=== PATIENT | female | born 1990 | race Caucasian/White ===

== ENCOUNTER 2019-02-20 07:26 | Inpatient (IN) ==
[2019-02-20] MEDS ORDERED: OXYTOCIN 30 UNITS/500 ML BAG IV PRN ×3 (07:56→23:38)
[2019-02-20 08:21] LABS: Hematocrit (blood only) 34.9 % (37-47); Hemoglobin 12.2 g/dL (12.0-16.0); Mean Corpuscular Volume 89.3 fL (80-100); Platelet Count 188 K/uL (130-400); RDW Coefficient of Variation 12.8 % (11.5-14.5); RDW Standard Deviation 41.3 fL (36.4-46.3); Red Blood Count 3.91 M/uL (4.2-5.4); White Blood Count 13.45 K/uL (4.8-10.8)
--- NOTE | 2019-02-20 08:29 | History & Physical Report ---
Date of Service February 20, 2019 Assessment & Plan (1) 41 weeks gestation of : (2) Elective induction of labor planned: admit iv, labs. fhts categ 1, start pitocin, plan arom when able. induction indicated for postdatism and couple agree. aware dr. neri will be taking over. History of Present Illness Chief Complaint: planned induction Primary Care Provider: Abbie Blackburn MD 28yo at 41+wks ega presents to L&D with above cc. No new compliants. Was crampy last night. Elder balloon fell out at 4am and then less crampy. No rom. No vb. +FM. pnc c/b postdates pnl rh pos, rubella immune, gbs negative obh: g1 gynh: no stds, normal pap smears pmh: h/o depression/anxiety psh: T&A, left leg mole removal, wisdom teeth Allergies Allergy/AdvReac Type Severity Reaction Status Date / Time No Known Drug Allergies Allergy Unknown Verified 02/20/19 07:41 Home Medications Home Medications Medication Instructions Recorded Confirmed Type ferrous sulfate 1 tab PO 3XWK 01/09/19 02/20/19 History omega-3 fatty acids 1 tab PO DAILY 01/09/19 02/20/19 History 1 tab PO DAILY 01/09/19 02/20/19 History vitamin,calcium,imiigcek-timx-isxem acid tablet Patient History Social History Preferred Language: Indonesian Beliefs That Will Affect Care: None marital status: Current Living Situation: Spouse Other Information That Helps Us Care for You: No Feels Safe at Home: Yes Safety Concerns: Feels Safe At This Time Smoking Status: Former smoker Second Hand Exposure: No ; Hx Alcohol Use: No Hx Substance Use: No Review of Systems per hpi, denies pain this am. Physical Exam Constitutional: WD/WN, vitals as above Respiratory: normal respiratory effort Auscultation: lungs clear to auscultation bilaterally Cardiovascular: Rate/Rhythm: regular rate and regular rhythm Gastrointestinal (Abdomen): Percussion/Palpation: abdomen soft (gravid efw 7#14oz); abdomen nontender Neurologic: grossly normal Psychiatric: A+Ox3, euthymic affect Genitourinary: OB Exam Abdomen: + vertex Manual OB Exam: + cervical dilation 3 cm, + cervical effacement 20% and + station (posterior, medium) -2 OB Exam Monitor Tracing: + external FHT monitor used (135 mod variability, reactive), + external uterine monitor used (irreg), + category I and + normal FHT variability efw 7#140z Results & Data Vital Signs (Past 12 Hours) Vital Signs Temp Pulse Resp BP 02/20/19 07:39 98.6 F 90 16 130/76 Code Status & VTE Plan VTE Prophylaxis Plan VTE Prophylaxis will be ordered: No
[2019-02-20] MEDS: LACTATED RINGER'S 1,000 ML IV PRN ×4 (08:48→19:52)
[2019-02-20] MEDS ORDERED: ePHEDrine sulfate 50 MG/ML AMP ONE (15:03)
[2019-02-20] MEDS ORDERED: BUPIVACAINE 0.25% 30 ML VIAL ONE (15:03)
[2019-02-20] MEDS ORDERED: fentaNYL citrate 100 MCG/2 ML VIAL ONE ×2 (15:03→21:47)
[2019-02-20] MEDS ORDERED: fentaNYL 2MCG/ML ROPIV 1.25MG/ML 100 ML BAG EPI ONE (15:04)
--- NOTE | 2019-02-20 15:27 | Anesthesiology Consultation ---
Date of Service February 20, 2019 Assessment & Plan Chart Review Chart Review: Acceptable Risk for Labor Epidural Consults Requested none History Height/Weight Height: 5 ft 8 in Weight: 94.347 kg Allergies Allergy/AdvReac Type Severity Reaction Status Date / Time No Known Drug Allergies Allergy Unknown Verified 02/20/19 07:41 Medications Home Medications Medication Instructions Recorded Confirmed Last Taken ferrous sulfate 1 tab PO 3XWK 01/09/19 02/20/19 02/18/19 omega-3 fatty acids 1 tab PO DAILY 01/09/19 02/20/19 02/19/19 12:00 1 tab PO DAILY 01/09/19 02/20/19 02/19/19 15:00 vitamin,calcium,vuipzyrb-pkzr-hpisk acid tablet Active Medications Generic Name Dose Route Start Last Admin Trade Name Freq PRN Reason Stop Dose Admin Lactated Ringer's 1,000 mls @ 125 mls/hr 02/20/19 07:56 02/20/19 14:57 Lr IV 02/22/19 07:55 999 mls/hr .Q8H PRN Administration L&D Protocol Protocol Oxytocin 30 units in 500 mls @ 13 mls/hr 02/20/19 07:56 02/20/19 13:40 Pitocin IV 02/22/19 07:55 0.78 units/hr .Q24H PRN 13 mls/hr Labor Induction/Augmentation Titration Protocol 0.78 UNITS/HR Past Medical History Medical History History of anemia History of anxiety History of depression History of varicella Past Family History Family History Father Hepatitis Past Surgical History Surgical History History of removal of skin mole S/P tonsillectomy and adenoidectomy S/P wisdom tooth extraction Social History Smoking Status: Former smoker Hx Alcohol Use: No Hx Substance Use: No substance use type: does not use Physical Exam Vital Signs Last Vital Signs Temp 36.7 C 02/20/19 10:45 Pulse 74 02/20/19 15:24 Resp 18 02/20/19 10:45 BP 128/81 02/20/19 14:49 Pulse Ox 99 02/20/19 15:24 Testing Laboratory Results 02/20/19 08:11
[2019-02-20] MEDS ORDERED: ePHEDrine sulfate 50 MG/ML AMP IV PRN (15:30)
[2019-02-20] MEDS ORDERED: NALBUPHINE HCL INJ 10 MG/ML AMP IV PRN (15:30)
[2019-02-20] MEDS ORDERED: fentaNYL 2MCG/ML ROPIV 1.25MG/ML 100 ML BAG EPI PRN (15:30)
[2019-02-20] MEDS ORDERED: NALOXONE HCL 1 MG in SODIUM CHLORIDE 0.9% 1000ML 1,000 ML IV PRN (15:30)
[2019-02-20] MEDS ORDERED: NALOXONE HCL 0.4 MG/1 ML VIAL/CARP IV PRN (15:30)
[2019-02-20] MEDS ORDERED: DiphenhydrAMINE HCL 50 MG/ML VIAL IV PRN (15:30)
[2019-02-20] MEDS ORDERED: LIDOCAINE HCL 2% MPF (LOCAL) 5 ML VIAL INFIL ONE ×2 (15:48→21:47)
[2019-02-20] MEDS ORDERED: SILVER NITR/POTASSIUM NITRATE APPLICATOR ONE (23:04)
[2019-02-20] MEDS ORDERED: OXYCODONE/ACETAMINOPHEN 5mg/325mg TAB PO PRN (23:38)
[2019-02-20] MEDS ORDERED: SUPERCREAM 0.870% 15 GM JAR EXT PRN (23:38)
[2019-02-20] MEDS ORDERED: HYDROCORTISONE ACETATE 25 MG SUPP PR PRN (23:38)
[2019-02-20] MEDS ORDERED: DIPHTHERIA/TETANUS/PERTUSSIS 0.5 ML SYR/VIAL IM ONE (23:38)
[2019-02-20] MEDS ORDERED: ACETAMINOPHEN 325 MG TAB PO PRN (23:38)
[2019-02-20] MEDS ORDERED: BENZOCAINE 20% AER SPR 82.5 GM CAN EXT PRN (23:38)
[2019-02-20] MEDS ORDERED: BISACODYL 10 MG SUPP PR PRN (23:38)
--- NOTE | 2019-02-21 00:01 | Delivery Summary ---
DATE OF OPERATION: 02/20/2019 The patient is a 28-year-old G1, P0 white female who presented for induction of labor because of post-term . She received a cervical balloon the night of 02/19/2019. It fell out at approximately 0400 hours. She presented to labor and delivery today for continuation of induction. Pitocin augmentation was begun. Membranes were ruptured for clear fluid at 5 cm dilated. She received effective epidural analgesia. She progressed to full dilation and pushed effectively over intact perineum for delivery of a viable female . There was a loose nuchal cord on delivery which was reduced prior to delivering the rest of the . There was a loose body cord also present. The infant was placed on the mother's abdomen for further attention and drying. was vigorous and moving all 4 limbs. Cord was clamped and cut after 30 seconds. After cord blood was obtained, the placenta was expressed intact with a 3-vessel cord. First-degree vaginal laceration was repaired with 3-0 chromic in the usual fashion. Bilateral labial abrasions were not bleeding and therefore not repaired. A sessile skin tag in the right crural fold was removed with scissors. The base of the lesion, bleeding was controlled with direct pressure and silver nitrate. At this point, hemostasis was noted to be excellent. Mother and infant were doing well after delivery. There was a 200 mL blood loss. IV dilute Pitocin was used to control bleeding. I attest to the content of the Intraoperative Record and any orders documented therein. Any exception s are noted below.
[2019-02-21] MEDS ORDERED: IBUPROFEN 600 MG TAB PO ONE (00:16)
[2019-02-21] MEDS: IBUPROFEN 600 MG TAB PO PRN ×4 (00:17→20:25)
--- NOTE | 2019-02-21 06:17 | Obstetrical Progress Note ---
Date of Service <Henry Wong MD - Last Filed: 02/21/19 06:47> February 21, 2019 Assessment & Plan <Henry Wong MD - Last Filed: 02/21/19 06:47> (1) : on 02/20 PPD #1 -Feels well today, eating well, voiding well, ambulating well -pain well controlled -After discharge will have 6 week follow-up (2) Elective induction of labor planned: Subjective <Henry Wong MD - Last Filed: 02/21/19 06:47> Ms Garcia is a 28 y/o female ; PPD #1 following spontaneous vaginal delivery at 41+ weeks; doing well this morning; some mild abdominal cramping/pain; voiding well, passing gas but no bowel movements at this point; tolerating meals overnight; able to ambulate some; some persistent spotting with intermittent improvement this morning. Review of Systems Constitutional: denies fever; chills; sweats; headache Respiratory: denies shortness of breath, difficulty breathing Cardiac: denies chest pain; palpitations; chest pressure Breast: denies breast pain : denies dysuria Physical Exam <Henry Wong MD - Last Filed: 02/21/19 06:47> General: alert; oriented; no acute distress Cardiac: RRR; no m/g/r Respiratory: CTAB a/p; no wheezes/rales/rhonchi; no increased work of breathing; symmetrical chest rise; no respiratory distress Abdomen: soft; NT/ND; bowel sounds positive Uterus: uterine fundus firm; palpable 1cm below umbilicus Lower extrem: no lower extremity edema or swelling; no deep calf pain; Lucy's sign negative b/l Results & Data <Henry Wong MD - Last Filed: 02/21/19 06:47> Vital Signs (Past 12 Hours) Vital Signs Temp Pulse Pulse Resp BP BP Pulse Ox 02/21/19 01:40 36.9 C 77 20 124/76 96 02/21/19 01:15 86 119/65 02/21/19 01:11 86 119/65 02/21/19 00:56 77 119/65 02/21/19 00:45 94 H 18 128/72 02/21/19 00:41 94 H 128/72 02/21/19 00:27 88 127/76 02/21/19 00:15 91 H 18 128/69 02/21/19 00:11 91 H 128/69 02/21/19 00:05 91 H 18 128/69 02/20/19 23:57 98 H 148/105 H 02/20/19 23:50 98 H 18 148/105 H 02/20/19 23:42 96 H 142/77 H 02/20/19 23:35 36.7 C 94 H 20 152/79 H 02/20/19 23:27 94 H 152/79 H 02/20/19 23:25 91 H 20 128/69 02/20/19 23:11 88 124/79 02/20/19 23:10 94 H 20 152/79 H 02/20/19 23:09 89 99 02/20/19 23:04 94 H 129/67 100 02/20/19 22:59 88 100 02/20/19 22:54 95 H 100 02/20/19 22:50 99 H 93 02/20/19 22:49 91 H 135/67 100 02/20/19 22:44 91 H 87 L 02/20/19 22:39 89 100 02/20/19 22:34 109 H 96 02/20/19 22:29 87 100 02/20/19 22:28 92 H 88 L 02/20/19 22:24 82 99 02/20/19 22:22 86 87 L 02/20/19 22:19 89 127/69 99 02/20/19 22:14 86 97 02/20/19 22:13 90 93 02/20/19 22:09 87 100 02/20/19 22:04 75 124/77 98 02/20/19 21:59 93 H 99 02/20/19 21:57 76 122/74 02/20/19 21:54 80 98 02/20/19 21:49 76 124/73 98 02/20/19 21:44 82 97 02/20/19 21:39 78 99 02/20/19 21:34 75 112/65 99 02/20/19 21:33 36.8 C 02/20/19 21:29 75 97 02/20/19 21:24 75 98 02/20/19 21:20 76 111/67 02/20/19 21:19 75 98 02/20/19 21:14 74 98 02/20/19 21:09 76 98 02/20/19 21:06 71 117/70 02/20/19 21:04 72 98 02/20/19 20:59 74 99 02/20/19 20:54 72 99 02/20/19 20:50 74 113/70 02/20/19 20:49 79 98 02/20/19 20:44 70 99 02/20/19 20:39 72 100 02/20/19 20:35 66 114/71 02/20/19 20:34 78 99 02/20/19 20:29 72 100 02/20/19 20:24 74 99 02/20/19 20:19 74 117/74 100 02/20/19 20:14 71 100 02/20/19 20:09 72 99 02/20/19 20:04 71 118/72 100 02/20/19 19:59 74 100 02/20/19 19:54 69 98 02/20/19 19:49 74 100 02/20/19 19:44 74 99 02/20/19 19:39 71 98 02/20/19 19:34 71 113/68 99 02/20/19 19:29 75 98 02/20/19 19:24 72 98 02/20/19 19:20 68 115/70 02/20/19 19:19 71 97 02/20/19 19:15 67 123/70 02/20/19 19:14 73 99 02/20/19 19:10 36.6 C 18 02/20/19 19:09 75 97 02/20/19 19:04 76 114/67 99 02/20/19 18:59 69 98 02/20/19 18:54 78 98 02/20/19 18:49 71 112/65 98 02/20/19 18:44 74 98 02/20/19 18:39 77 98 02/20/19 18:35 70 119/60 02/20/19 18:34 77 98 02/20/19 18:30 18 02/20/19 18:29 74 97 02/20/19 18:24 69 99 02/20/19 18:19 79 113/66 97 Laboratory Results 02/20/19 Range/Units 08:11 WBC 13.45 H (4.8-10.8) K/uL RBC 3.91 L (4.2-5.4) M/uL Hgb 12.2 (12.0-16.0) g/dL Hct 34.9 L (37-47) % MCV 89.3 (80-100) fL MCH 31.2 (25-34) pg MCHC 35.0 (32-36) g/dL RDW Std Deviation 41.3 (36.4-46.3) fL RDW Coeff of [place] 12.8 (11.5-14.5) % Plt Count 188 (130-400) K/uL MPV 11.0 H (7.4-10.4) fL Medications Administered Current Inpatient Medications Acetaminophen (Tylenol) 650 mg PO Q6H PRN PRN Reason: Pain/LEVIN/Fever Stop: 03/22/19 23:37 Benzocaine (Dermoplast Pain Relieving [place]) 1 appln EXT PRN PRN PRN Reason: Perineal Discomfort Stop: 03/22/19 23:37 Last Admin: 02/21/19 01:14 Dose: 82.5 appln Documented by: Bisacodyl (Dulcolax) 5 mg PO 1999 [facility] Stop: 02/21/19 20:01 Bisacodyl (Dulcolax) 10 mg [place] DAILY PRN PRN Reason: No BM on 2nd post- day Stop: 03/22/19 23:37 Cocaine HCl (Supercream 0.870%) 1 gm EXT BID PRN PRN Reason: Hemorrhoidal Inflammation Stop: 03/06/19 23:37 Docusate Sodium (Colace) 100 mg PO DAILY@08,21 [facility] Stop: 03/23/19 07:59 Hydrocortisone (Anusol Hc) 25 mg [place] BID PRN PRN Reason: Hemorrhoidal Inflammation Stop: 03/22/19 23:37 Lactated Ringer's (Lr) 1,000 mls @ 125 mls/hr IV .Q8H PRN; Protocol PRN Reason: L&D Protocol Stop: 02/22/19 07:55 Last Infusion: 02/21/19 00:19 Dose: Infused Documented by: Oxytocin (Pitocin) 30 units in 500 mls @ 333 mls/hr IV .Q1H31M PRN; Protocol PRN Reason: Labor Induction/Augmentation Stop: 02/22/19 07:55 Last Titration: 02/20/19 23:00 Dose: 19.98 units/hr, 333 mls/hr Documented by: Oxytocin (Pitocin) 30 units in 500 mls @ 333.333 mls/hr IV .Q1H30M PRN; Protocol PRN Reason: Bleeding Control Stop: 03/22/19 07:55 Oxytocin (Pitocin) 30 units in 500 mls @ 333.333 mls/hr IV .Q1H30M PRN; Protocol PRN Reason: Bleeding Control Stop: 03/22/19 23:37 Ibuprofen (Motrin) 600 mg PO Q4H PRN PRN Reason: Pain/LEVIN/Cramping/Fever Stop: 03/22/19 23:37 Last Admin: 02/21/19 00:17 Dose: 600 mg Documented by: Oxycodone/Acetaminophen (Percocet 5mg/325mg) 1 tab PO Q4H PRN PRN Reason: Pain not relieved by... Stop: 03/06/19 23:37 Prenat Multivit/[place]/Iron/Folic Ac ( Vitamin) 1 tab PO DAILY@08 BERNIE Stop: 03/23/19 07:59 <Carmella Gaona MD, FACOG - Last Filed: 02/21/19 07:30> Co-Signing Physician Notes Resident Physician Supervision Note: I interviewed and examined the patient. Discussed with Dr. Wong and agree with findings and plan as documented in the note. Any exceptions or clarifications are listed here: [None] Documented By: Carmella Gaona MD, FACOG Resident Activity Tracking <Henry Wong MD - Last Filed: 02/21/19 06:47> Resident Involvement: Resident Care Provided Care Provided: OB Delivery
[2019-02-21 06:59] LABS: Hematocrit (blood only) 31.1 % (37-47); Hemoglobin 10.8 g/dL (12.0-16.0); Mean Corpuscular Hgb Conc 34.7 g/dL (32-36); Mean Corpuscular Volume 89.1 fL (80-100); Mean Platelet Volume 11.3 fL (7.4-10.4); Platelet Count 179 K/uL (130-400); RDW Coefficient of Variation 12.8 % (11.5-14.5); RDW Standard Deviation 41.2 fL (36.4-46.3); Red Blood Count 3.49 M/uL (4.2-5.4); White Blood Count 15.66 K/uL (4.8-10.8)
--- NOTE | 2019-02-21 07:29 | Anesthesia Procedure Note ---
Date of Service February 21, 2019 Anesthesia Post Epidural Note Vital Signs Vital Signs: Temp Pulse Resp BP Pulse Ox 36.6 C 72 20 115/76 96 02/21/19 07:02/21/19 07:02/21/19 07:02/21/19 07:02/21/19 07:11 Pain Intensity Abdomen: Pain Intensity: 2 Notes Mental Status: alert / awake / arousable Nausea / Vomiting: adequately controlled Pain: adequately controlled Airway Patency, RR, SpO2: stable & adequate BP & HR: stable & adequate Hydration State: stable & adequate Neuraxial Anesthesia: was administered and sensory block is resolving Anesthetic Complications: no major complications apparent and Pt Satisfied with anesthetic care Epidural: Removed without complications and With tip intact
[2019-02-21] MEDS: PRENATAL VITAMIN 1 TAB PO SCH (08:56)
[2019-02-21] MEDS: DOCUSATE SODIUM 100 MG CAP PO SCH ×2 (08:56→20:25)
[2019-02-21] MEDS ORDERED: BISACODYL 5 MG TABEC PO SCH (20:00)
[2019-02-22] MEDS: IBUPROFEN 600 MG TAB PO PRN ×3 (00:36→12:38)
--- NOTE | 2019-02-22 06:16 | Obstetrical Progress Note ---
Date of Service February 22, 2019 Assessment & Plan (1) : on 02/20 PPD #2 -Feels well today, eating well, voiding well, ambulating well -pain well controlled -After discharge will have 6 week follow-up (2) Elective induction of labor planned: Subjective Ms Garcia is a 28 y/o female ; PPD #2 following spontaneous vaginal delivery at 41+ weeks; doing well this morning; some mild abdominal cramping/pain; voiding well, passing gas but no bowel movements at this point; tolerating meals overnight; able to ambulate some around room; some persistent vaginal spotting with intermittent improvement as compared to [place] this morning. Review of Systems Constitutional: denies fever; chills; sweats; headache Respiratory: denies shortness of breath, difficulty breathing Cardiac: denies chest pain; palpitations; chest pressure Breast: denies breast pain : denies dysuria Physical Exam General: alert; oriented; no acute distress Cardiac: RRR; no m/g/r Respiratory: CTAB a/p; no wheezes/rales/rhonchi; no increased work of breathing; symmetrical chest rise; no respiratory distress Abdomen: soft; NT/ND; bowel sounds positive Uterus: uterine fundus firm; palpable 3cm below umbilicus Lower extrem: no lower extremity edema or swelling; no deep calf pain; Lucy's sign negative b/l Results & Data Vital Signs (Past 12 Hours) Vital Signs Temp Pulse Resp BP Pulse Ox 02/22/19 00:00 36.7 C 72 20 134/87 97 02/21/19 19:40 36.4 C L 72 18 130/78 97 Laboratory Results 02/22/19 02/21/19 Range/Units 06:42 06:32 WBC 15.66 H (4.8-10.8) K/uL RBC 3.49 L (4.2-5.4) M/uL Hgb 10.0 L 10.8 L (12.0-16.0) g/dL Hct 29.0 L 31.1 L (37-47) % MCV 89.1 (80-100) fL MCH 30.9 (25-34) pg MCHC 34.7 (32-36) g/dL RDW Std Deviation 41.2 (36.4-46.3) fL RDW Coeff of [place] 12.8 (11.5-14.5) % Plt Count 179 (130-400) K/uL MPV 11.3 H (7.4-10.4) fL Medications Administered Current Inpatient Medications Acetaminophen (Tylenol) 650 mg PO Q6H PRN PRN Reason: Pain/LEVIN/Fever Stop: 03/22/19 23:37 Last Admin: 02/22/19 00:37 Dose: 650 mg Documented by: Benzocaine (Dermoplast Pain Relieving [place]) 1 appln EXT PRN PRN PRN Reason: Perineal Discomfort Stop: 03/22/19 23:37 Last Admin: 02/21/19 01:14 Dose: 82.5 appln Documented by: Bisacodyl (Dulcolax) 10 mg [place] DAILY PRN PRN Reason: No BM on 2nd post- day Stop: 03/22/19 23:37 Cocaine HCl (Supercream 0.870%) 1 gm EXT BID PRN PRN Reason: Hemorrhoidal Inflammation Stop: 03/06/19 23:37 Docusate Sodium (Colace) 100 mg PO DAILY@08,21 BERNIE Stop: 03/23/19 07:59 Last Admin: 02/21/19 20:25 Dose: 100 mg Documented by: Hydrocortisone (Anusol Hc) 25 mg [place] BID PRN PRN Reason: Hemorrhoidal Inflammation Stop: 03/22/19 23:37 Lactated Ringer's (Lr) 1,000 mls @ 125 mls/hr IV .Q8H PRN; Protocol PRN Reason: L&D Protocol Stop: 02/22/19 07:55 Last Infusion: 02/21/19 00:19 Dose: Infused Documented by: Oxytocin (Pitocin) 30 units in 500 mls @ 333 mls/hr IV .Q1H31M PRN; Protocol PRN Reason: Labor Induction/Augmentation Stop: 02/22/19 07:55 Last Titration: 02/20/19 23:00 Dose: 19.98 units/hr, 333 mls/hr Documented by: Oxytocin (Pitocin) 30 units in 500 mls @ 333.333 mls/hr IV .Q1H30M PRN; Protocol PRN Reason: Bleeding Control Stop: 03/22/19 07:55 Oxytocin (Pitocin) 30 units in 500 mls @ 333.333 mls/hr IV .Q1H30M PRN; Protocol PRN Reason: Bleeding Control Stop: 03/22/19 23:37 Ibuprofen (Motrin) 600 mg PO Q4H PRN PRN Reason: Pain/LEVIN/Cramping/Fever Stop: 03/22/19 23:37 Last Admin: 02/22/19 00:36 Dose: 600 mg Documented by: Oxycodone/Acetaminophen (Percocet 5mg/325mg) 1 tab PO Q4H PRN PRN Reason: Pain not relieved by... Stop: 03/06/19 23:37 Prenat Multivit/[employer]/Iron/Folic Ac ( Vitamin) 1 tab PO DAILY@08 BERNIE Stop: 03/23/19 07:59 Last Admin: 02/21/19 08:56 Dose: 1 tab Documented by: Resident Activity Tracking Resident Involvement: Resident Care Provided Care Provided: OB Delivery
[2019-02-22] MEDS: DOCUSATE SODIUM 100 MG CAP PO SCH (07:52)
[2019-02-22] MEDS: PRENATAL VITAMIN 1 TAB PO SCH (07:52)
== END 2019-02-22 14:05 | disposition home or self-care (01) | DRG 807 ==
LOC: 4S1 07:26 → 4S2 02-21 01:46